=== PATIENT | female | born 1930 | race Caucasian/White ===

== ENCOUNTER → 2016-11-28 | Outpatient (CLI) | payer OTHER ==
[~2016-11-28] MED LIST: ACETAMINOPHEN325 M1 PO; ADULT LOW DOSE81 MG PO; AMBIEN 5 MG TABL5 M1 PO; APAP500 PO; ASA5UEC; ASPIR 8181 MG PO; ASPIRIN EC81 M1 PO; ASPIRIN325 PO; ATORVASTATIN CA40 MG PO; BACTRIM DS TAB1 EAC1 PO; BENICAR HCT 201 EACH PO; BENICAR20 MG PO; BENICAR40 MG PO; BETIMOL 0.0.25 %/11 OP; BISAC-EVAC10 MG RC; CALCIUM +D & M1 EACH PO; CALCIUM 500 +1 EAC5; CALCIUM 500 +1 EAC5 PO; CALCIUM 600 +1 EAC1 PO; CARVEDILOL12.5 MG PO; CARVEDILOL6.25 MG PO; CATAPRES0.1 MG PO; CELEBREX 200 M200 M1 PO; CELEBREX 200 M200 MG PO; CLONIDINE HCL0.1 MG PO; CLONIDINE PO; CLONIDINE0.1 PO; COLACE100 MG PO; COMPOUNDING; COUMADIN 3 MG TA3 MG PO; CYMBALTA20 MG PO; CYMBALTA30 MG PO; DEXTROAMPHETAMIN5 M2 PO; DILAUDID 2 MG TA2 MG PO; DILAUDID 4 MG TA4 M1 PO; DOLOPHINE HCL10 MG PO; EX-LAX15 M1 PO; EX-LAX5 MG PO; FENTANYL PA12 MCG/H1 TRANSDERM; FENTANYL PA25 MCG/HR TP; FENTANYL PA25 MCG/HR TRANSDERM; FENTANYL PA50 MCG/HR TRANSDERM; FIBERCON625 M1 PO; FOLIC ACID1 MG PO; FOSAMAX 35 MG35 MG PO; FOSAMAX 70 MG T70 MG PO; GABAPENTIN 100100 MG PO; HYDROCHLOROTHIA25 M1 PO; HYDROCODON-ACE1 EA11 PO; HYDROCODON-ACE1 EAC1 PO; HYDROCODON-ACE1 EAC7 PO; INDOMETHACIN 5050 M1 PO; LEVOTHYROXIN0.075 MG PO; LEVOTHYROXINE0.05 MG PO; LIDODERM 5%1 PATCH TOP; LIPITOR 20 MG T20 M1 PO; LISINOPRIL5 MG PO; MECLIZINE HCL12.5 MG PO; METHADONE HCL5 MG PO; MINIPRIN81 MG PO; MIRALAX17 GM PO; MIRALAX255 GM PO; MOBIC15 MG PO; MOBIC7.5 M1 PO; MOM PO; MULTIVITAMINS PO; NAPROSYN500 MG PO; NORCO 5-325 TA1 EACH PO; NORCO 7.5-3251 EACH PO; NORVASC 5 MG TAB5 MG PO; ONDANSETRON HCL4 M2 PO; OSCIMIN0.125 MG PO; OXYCODONE HCL 55 MG PO; OXYCODONE HCL10 MG PO; OXYCODONE HCL15 MG PO; OXYIR 5 MG CAPSU5 M1 PO; PAIN & FEVER325 MG PO; POTASSIUM20 PO; PROLIA60 MG/1 ML SQ; PURELAX17 GM PO; RECLAST 55 MG/1002; RECLAST 55 MG/1002 IVPB; ROXICODONE5 MG PO; SENNA CONCENTR8.6 MG PO; SENNA8.6 MG PO; SERTRALINE HCL50 MG PO; TERBINAFINE15 GM TP; TIMOLOL MA0.25 %/52 OP; TRAMADOL; TRAMADOL 50 MG50 MG; TRAMADOL 50 MG50 MG PO; TYLENOL325 MG PO; ULTRAM 50MG TAB50 MG PO; VITAMIN B-12500 MCG PO; VOLTAREN GEL 1100 G1 TOP; VOLTAREN GEL 1100 G2 TOP; XANAX 0.25 MG0.25 MG PO; XOPENEX0.63 MG/3 IH; ZANAFLEX4 MG PO; ZOFRAN4 MG PO; ZOLOFT 50 MG TA50 M1 PO; ZOLOFT100 MG PO
--- NOTE | ~2016-11-28 | HPC ---
[facility] [address] [address] PAIN MANAGEMENT CONSULTATION Name: KEILA GARCIAOGENE Room #: REG KALIEnrrique Valle.#: [id number] Admission: 11/28/16 Attend Phys: Giovanni Wong MD Discharge: Date of : 31 Report #: [id number] THIS REPORT FOR: //name// CC: Washington Urias DO Giovanni Wong DATE OF SERVICE: 11/28/2016 REASON FOR VISIT: Family palliative care consultation. HISTORY OF PRESENT ILLNESS: The patient is an 85-year-old who I have followed for many years for chronic pain. At the request of her daughter, Priya, she is here today with Priya, her son, [id number] and . They request that we discussed palliative care issues and end of life issues. 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 It does not invade beyond the nasopharynx as noted by PET scan and she has been offered radiation therapy. This has been technical services representative curative and will also shrink the mass as always there are side effects with radiation therapy and we discussed making sure that that treatment will be tolerated and that the side effects of treatment are not more burdensome than living with it. The patient is quite adamant and she wants to pursue this treatment, not so much for cosmetic reasons but because it is uncomfortable and bothers her. She has been treated in our clinic for severe osteoarthritis, particularly of the right shoulder. It is extremely painful for her and as her dominant arm, any movement has been causing excruciating pain. We tried a number of medications before finally settling on methadone 5 mg and she has been quite tolerant at that even at her age. She denies significant side effects and sees improvement in her ability to tolerate this severe somatic arthritic pain. She has also used oxycodone 5 mg 3 times daily for breakthrough pain and we have had quite of chore obtaining a Medicare approved compounding cream for her. We have ultimately been able to retrieve it from [facility] at reasonable cost. It contains ketamine, baclofen, cyclobenzaprine, ketoprofen, gabapentin and lidocaine and a transdermal cream . Today, she reports the pain is 7/10, not hurting too much, exacerbated again by any movement of the arm. There has been no other significant change in her history other than that already mentioned. PAST MEDICAL HISTORY: Well documented through her multiple visits including stroke, history of RI, AVM of the right shoulder, hypertension, gout and severe spinal degeneration with multiple kyphoplasties. She has suffered from depression. PHYSICAL EXAMINATION: [facility] [address] [place] [address] PAIN MANAGEMENT CONSULTATION Name: KEILA GARCIAOGENE Room #: REG [facility]#: [id number] Admission: 11/28/16 Attend Phys: Giovanni Wong MD Discharge: Date of : 31 Report #: [id number] GENERAL: She is alert, oriented, of sound mind. VITAL SIGNS: Blood pressure is 137/63, heart rate 63, respirations 16, O2 sat 95. BMI is 17. MUSCULOSKELETAL: Pain in the shoulders noted with all movement. IMPRESSION: 1. Chronic intractable pain, mostly severe osteoarthritis, right shoulder. 2. 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 3. Management of high risk medications under terms of an opioid agreement, which we have reviewed in all detail and including the CDC guidelines. 4. Palliative care requests. We had discussion today about palliative care directed for both the patient and her family. She reported that she has a durable power of commercial litigation attorney for health care established and Priya and she has completed an advanced directive with a DNR. She does not want to be resuscitated in an emergent situational and would prefer to allow for a natural as long as she was quite comfortable. Our conversation also centered around the quality of life. This is a nebulous term and is different from each person, what is meaningful to her and her is important as we will strive to provide that for them in ways that we can with her medications and other health care intervention. The timing of each person's is difficult to predict and most of the decisions that occur are point in time decision. Ability to understand what is a value will help when those decision points come. I provided the family with some guidance and also written information from the center for practical bioethics. They are carrying conversation's booklet, is an excellent source to begin a dialogue or continue dialogue on preferences at the end of life. She will be made clear here that though the patient and her are old and at the end of their life, they are not in anyway candidate for hospice and their life expectancy is unpredictable, but certainly not considered to be at anytime within the next 6 months. Family was allowed to ask and answer questions during her 30 minute consultation. Followup is planned as needed. I have provided also for the patient her medications under terms of our opioid agreement for 3 months. I will be available support to them in any way that I can going forward. By: [id number] Giovanni Wong MD /nt
[2016-11-28 14:00] VITALS: BP 137/63
== END | disposition home or self-care (01) ==
LOC: PAIN 07:19
DX: C30.0 Malignant neoplasm of nasal cavity (principal); G89.29 Other chronic pain; I21.3 ST elevation (STEMI) myocardial infarction of unspecified site; I10 Essential (primary) hypertension; M10.9 Gout, unspecified; F32.9 Major depressive disorder, single episode, unspecified; M19.011 Primary osteoarthritis, right shoulder; F11.20 Opioid dependence, uncomplicated; Z87.891 Personal history of nicotine dependence

== ENCOUNTER → 2017-03-06 | Outpatient (CLI) | payer OTHER ==
[~2017-03-06] VITALS: Ht 152.4 cm; Wt 42.4 kg
[~2017-03-06] MED LIST changes: +FLONASE 0.05%50 MCG NASAL
--- NOTE | ~2017-03-06 | HPC ---
[facility] [address] [address] PAIN MANAGEMENT CONSULTATION Name: KEILA GARCIA Room #: REG Enrrique Valle.#: [id number] Admission: 03/06/17 Attend Phys: Giovanni Wong MD Discharge: Date of : 31 Report #: [id number] THIS REPORT FOR: //name// CC: MAVERICK Wong DATE OF SERVICE: 03/06/2017 Followup visit for consultation regarding chronic pain. The patient was in the pain clinic today with her . They were here for about 25 minutes. We discussed her ongoing pain. Her shoulder is much better with the cream that we provided. This compound cream includes two muscle relaxants, baclofen and cyclobenzaprine in addition to gabapentin and ketoprofen. She has been using 3 times daily and her range of motion has been quite a bit improved. Pain score is 2/10. This is a marked reduction from her previous pain in the shoulder. She has been able to use her arm effectively for activities of daily living including eating, grooming and hygiene. She has also been using medication under terms of our agreement. She tolerated the medication very well and only side effect is constipation. She and her have developed a good regimen of taking Ex-Lax on the 3rd day along with MiraLax and this combination seems to allow her to have a predictable bowel movement the following day. She had a large exophytic lesion and mass that was extending from her right nare at last visit. She has had radiation treatments and I am pleased to report that this has almost completely gone. MEDICATIONS: From our clinic include methadone 5 mg 2 tablets morning, 2 evening and 1 at bedtime for a total of 25 mg daily. We have reduced this to 20 mg today at family request. She also uses oxycodone 5 mg and also I have decided to reduce her breakthrough medication to 2 tablets a day or 60 tablets. PHYSICAL EXAMINATION: She is pleasant, alert and oriented. She shows no signs of overmedication, depression or anxiety. Her blood pressure is 120/54, heart rate 59, BMI is 18.2. Although she is frail, she seems to be "doing quite well right now." Her right shoulder is minimally tender. She has good range of motion. Again, the exophytic lesion in her nose is now resolved. IMPRESSION AND PLAN: 1. Chronic intractable pain secondary primarily to severe osteoarthritis. Right shoulder has been worse and this is much improved with cream treatment. [facility] [address] [place] [address] PAIN MANAGEMENT CONSULTATION Name: KEILA GARCIA DEVORAH [id number] Admission: 03/06/17 Attend Phys: Giovanni Wong MD Discharge: Date of : 31 Report #: [id number] 2. Squamous cell carcinoma of the nasopharynx, extruding for the right nare has been resolved by radiation 3. Management of high risk medications under terms of our opioid agreement. She is on higher than the recommended CDC guidelines of 90 morphine milligram equivalents, but she is tolerating it extremely well, shows no significant side effects. Pain is well controlled and her medication is being managed carefully and cautiously. I believe it is appropriate to continue at this dose, although we will continue to reduce it as able. As noted, we have reduced her methadone by 20% and her oxycodone also by 30%. Prescriptions were renewed, methadone 5 mg #120, 2 tablets morning, 1 noon and 1 in evening; Oxycodone 5 mg 1 tablet b.i.d. for breakthrough. I also renewed Celebrex 200 mg once daily, Cymbalta 30 mg once daily. Followup visit is scheduled in 3 months. By: 1607 57 Giovanni Wong MD /nt
[2017-03-06 10:15] VITALS: BP 120/54
== END | disposition home or self-care (01) ==
LOC: PAIN 10-24 08:04
DX: M19.011 Primary osteoarthritis, right shoulder (principal); I63.9 Cerebral infarction, unspecified; Z85.818 Personal history of malignant neoplasm of other sites of lip, oral cavity, and pharynx; Z79.891 Long term (current) use of opiate analgesic; Z87.891 Personal history of nicotine dependence; Z88.0 Allergy status to penicillin; Z79.82 Long term (current) use of aspirin; Z79.899 Other long term (current) drug therapy

== ENCOUNTER 2017-08-18 14:50 | Emergency (ER) | payer OTHER ==
[~2017-08-18] VITALS: Ht 157.5 cm; Wt 45.4 kg
--- NOTE | ~2017-08-18 | EKG ---
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: YASIR : 1930 Requested By: Jerome Goncalves Order Number: [id number] MD: Toni Omalley Measurements Intervals Clemons Rate: 74 P: 40 GA: 166 QRS: -47 QRSD: 94 T: QT: 526 QTc: 584 Interpretive Statements Probable Atrial fibrillation Low voltage limb leads Prolonged QT interval Nonspecific ST and T wave abnormality Compared to ECG 08/08/2015 16:33:47 atrial fibrillation has replaced sinus rhythm Electronically Signed On 08-19-2017 7:53:01 RECYCLING OPERATOR by Toni Omalley [email or web address] <ELECTRONICALLY SIGNED> By: Toni Omalley MD, [facility] 08/19/17 0753 [id number] 1455 Toni Omalley MD, [facility] /EPI
[2017-08-18 15:20] LABS: ABSOLUTE NEUTROPHILS 8.6 thou/uL (1.4-8.2); BASOPHILS 0.2 % (0.0-2.0); EOSINOPHILS 0.7 % (0.0-3.0); HEMATOCRIT 42.6 % (37.0-47.0); HEMOGLOBIN 14.2 gm/dL (12.0-15.0); LYMPHOCYTES 5.1 % (24.0-44.0); MCH 33.3 pg (26.0-34.0); MCHC 33.5 g/dL (28.0-37.0); MCV 99.4 fL (80.0-100.0); MONOCYTES 2.9 % (1.0-8.0); PLATELET COUNT 165 thou/uL (150-400); POLYS 91.1 % (36.0-66.0); RBC 4.28 mil/uL (4.20-5.00); RDW 14.6 % (10.5-14.5); WBC 9.5 thou/uL (4.0-11.0)
[2017-08-18 15:28] LABS: ANION GAP 6 mmol/L (7-16); BUN 28 mg/dL (7-18); CALCIUM 8.7 mg/dL (8.5-10.1); CHLORIDE 105 mmol/L (98-107); CO2 30 mmol/L (21-32); CREATININE 0.9 mg/dL (0.6-1.0); GLUCOSE 100 mg/dL (74-106); POTASSIUM 4.2 mmol/L (3.5-5.1); SODIUM 141 mmol/L (136-145)
[2017-08-18 15:29] LABS: URINE BILIRUBIN NEGATIVE (Negative); URINE BLOOD NEGATIVE (Negative); URINE CLARITY CLEAR; URINE COLOR YELLOW; URINE GLUCOSE-RANDOM* NEGATIVE (Negative); URINE KETONES 1+ (Negative); URINE LEUKOCYTES-REFLEX NEGATIVE (Negative); URINE NITRITE-REFLEX NEGATIVE (Negative); URINE PROTEIN (DIPSTICK) NEGATIVE (Negative); URINE UROBILINOGEN 0.2 E.U./dl (0.2-1.0)
[2017-08-18 15:37] LABS: ALBUMIN 3.5 g/dL (3.4-5.0); DIRECT BILIRUBIN 0.2 mg/dL (<0.1-0.3); LIPASE 118 U/L (73-393); SGOT 23 U/L (15-37); SGPT 23 U/L (30-65); TOTAL BILIRUBIN 0.6 mg/dL (<0.1-1.0); TOTAL PROTEIN 7.2 g/dL (6.4-8.2); TROPONIN-I < 0.04 ng/mL (<0.06)
[2017-08-18] MEDS ORDERED: VITAMIN D31000 UNIT PO (16:07)
[2017-08-18] MEDS ORDERED: EX-LAX MAXIMUM25 MG PO (16:09)
[2017-08-18] MEDS ORDERED: CARRINGTON MOIS99 G2 TOP (16:10)
[2017-08-18] MEDS ORDERED: ZOFRAN ODT4 MG PO (16:18)
[2017-08-18 16:26] VITALS: BP 161/77
[2017-09-01] MEDS ORDERED: ROXICODONE5 MG PO (10:29)
[2017-09-01] MEDS ORDERED: CELEBREX 200 M200 M1 PO (10:29)
[2017-09-01] MEDS ORDERED: OXYCODONE HCL5 M1 PO (10:29)
[2017-09-01] MEDS ORDERED: METHADONE HCL5 MG PO (10:29)
[2017-09-01] MEDS ORDERED: CYMBALTA30 MG PO (10:29)
[2017-12-04] MEDS ORDERED: VITAMIN D3400 UNIT PO (11:08)
[2017-12-04] MEDS ORDERED: OXYCODONE HCL5 M1 PO (11:15)
[2017-12-04] MEDS ORDERED: METHADONE HCL5 MG PO (11:15)
[2017-12-04] MEDS ORDERED: CYMBALTA30 MG PO (11:15)
[2017-12-04] MEDS ORDERED: CELEBREX 200 M200 M1 PO (11:15)
[2017-12-04] MEDS ORDERED: ROXICODONE5 MG PO (11:15)
[2018-03-02] MEDS ORDERED: CALTRATE 600 +1 EAC1 PO (09:58)
[2018-03-02] MEDS ORDERED: ONDANSETRON HCL4 M2 PO (10:06)
[2018-03-02] MEDS ORDERED: METHADONE HCL5 MG PO (10:13)
[2018-03-02] MEDS ORDERED: CYMBALTA30 MG PO (10:13)
[2018-03-02] MEDS ORDERED: OXYCODONE HCL5 M1 PO (10:13)
[2018-03-02] MEDS ORDERED: CELEBREX 200 M200 M1 PO (10:13)
[2018-03-02] MEDS ORDERED: ROXICODONE5 MG PO (10:13)
== END 2017-08-18 17:25 | disposition home or self-care (01) ==
LOC: ER 14:50
PROVIDERS: Emergency Medicine
DX: R53.1 Weakness (principal); R11.0 Nausea; I10 Essential (primary) hypertension; E78.5 Hyperlipidemia, unspecified; M10.9 Gout, unspecified; I25.2 Old myocardial infarction; E03.9 Hypothyroidism, unspecified; F32.9 Major depressive disorder, single episode, unspecified; Z87.891 Personal history of nicotine dependence; Z88.1 Allergy status to other antibiotic agents

== ENCOUNTER → 2017-09-01 | Outpatient (CLI) | payer OTHER ==
[~2017-09-01] VITALS: Ht 157.5 cm; Wt 39.3 kg
[~2017-09-01] MED LIST changes: +CALTRATE 600 +1 EAC1 PO; +CARRINGTON MOIS99 G2 TOP; +EX-LAX MAXIMUM25 MG PO; +OXYCODONE HCL5 M1 PO; +VITAMIN D31000 UNIT PO; +VITAMIN D3400 UNIT PO; +ZOFRAN ODT4 MG PO
--- NOTE | ~2017-09-01 | HPC ---
[facility] [address] [place] [address] PAIN MANAGEMENT CONSULTATION Name: KEILA GARCIAOGENE Room #: REG [facility] Leonard.#: [id number] Admission: 09/01/17 Attend Phys: Giovanni Wong MD Discharge: Date of : 31 Report #: [id number] THIS REPORT FOR: //name// CC: Washington rUias DO Giovanni Wong DATE OF SERVICE: 09/01/2017 Followup visit for severe arthritis, right shoulder; intractable pain, management of high risk medication. The patient is here today in the pain clinic with her daughter Briana. I see her at 3-month intervals. She is under an opioid agreement with our clinic and we have discussed this at some length at each visit. We reviewed her medications again today in detail. She has done well with methadone, taking 5 mg 2 tablets morning and evening and a half tablet during the middle of the day. We had titrated that gradually up to 3 tablets a day for a total of 15 with OxyIR 5 mg for breakthrough pain. This is a good example of someone who is quite tolerant to the medication and has gotten good benefit. She is 86 years of age. She denies any significant side effects. She is bright and alert. She is able to watch an entire TV show and can read a magazine or part of the paper. She can carry on conversations without signs of cognitive overdose. She has been able to manage her constipation with the use of medication. Her family watches over her carefully and we try to carefully titrate medications to avoid any sort of oversedation. Briana is with her today and says that the current dosing may be best served in the facility by providing her with methadone 3 times daily, oxycodone on a schedule 5 mg and if she feels that she does not need it she will refuse it. We have calculated her morphine milligram equivalency. Add methadone with a conversion of 4:1 and oxycodone with a conversion of 1.5:1, her total morphine milligram equivalence is 82. This is under the CDC guideline of 90 morphine milligram equivalence and since it is being provided for her at the facility, I feel comfortable in providing it. Her primary pain is in her shoulder. She also has had a stroke on her left side, so the right side is important for getting up and down out of a chair and all other day-to-day activities. Medications have done a good job in reducing her pain intensity to a 2/10 today. She uses a wheelchair and would be considered a fall risk, but has not fallen in the last 2-3 months because of careful monitoring. She has always been frail, BMI today is 15.8 with no significant change. She has hypertension, which is under treatment. Her opioids are being provided under terms of an opioid agreement and a risk assessment tool shows that she is at low risk for [address] [address] PAIN MANAGEMENT CONSULTATION Name: KEILA GARCIA DEVORAH Room #: REG CLEnrrique Melendrez#: [id number] Admission: 09/01/17 Attend Phys: Giovanni Wong MD Discharge: Date of : 31 Report #: [id number] addiction. She does not smoke, nor abuse alcohol. PHYSICAL EXAMINATION: Pleasant, alert and oriented, without signs of overmedication. She is in a wheelchair. I did not ask her to try and move from her wheelchair or transfer. She has limited motion of her right shoulder with tenderness located there. She is frail. IMPRESSION: 1. Chronic osteoarthritic pain of the right shoulder. 2. Squamous cell carcinoma of the nasopharynx, which has resolved with radiation. 3. Management of high risk medications under terms of written opioid agreement. PLAN: I renewed her medications, methadone 5 mg 3 times a day, oxycodone 10 mg t.i.d. on schedule, which can then be refused by the patient, Celebrex 200 mg daily and Cymbalta 30 mg daily. All of this has been confirmed and agreed upon by family. We will see her back in the pain clinic in 3 months. <ELECTRONICALLY SIGNED> By: Giovanni Wong MD 09/03/17 1640 [id number] 1744 Giovanni Wong MD /nt
[2017-09-01 10:03] VITALS: BP 139/66
== END ==
LOC: PAIN 07:34
DX: M19.011 Primary osteoarthritis, right shoulder (principal); F11.90 Opioid use, unspecified, uncomplicated; Z85.828 Personal history of other malignant neoplasm of skin

== ENCOUNTER → 2017-12-04 | Outpatient (CLI) | payer OTHER ==
[~2017-12-04] VITALS: Ht 152.4 cm; Wt 41.5 kg
[~2017-12-04] MED LIST changes: -CALTRATE 600 +1 EAC1 PO
--- NOTE | ~2017-12-04 | HPC ---
[facility] [address] [address] PAIN MANAGEMENT CONSULTATION Name: KEILA GARCIA Room #: REG [facility]#: [id number] Admission: 12/04/17 Attend Phys: Giovanni Wong MD Discharge: Date of : 31 Report #: [id number] THIS REPORT FOR: //name// CC: Washington Urias DO Giovanni Wong DATE OF SERVICE: 12/04/2017 Followup visit for management of chronic osteoarthritic pain. The patient returns to pain clinic today with her daughter. She is in a wheelchair. She is here today for renewal of her medication. She is currently living at [facility]. All medications are provided by staff there. The patient is 86, continues to manage her medications carefully. She does have some incontinence of stool and constipation related to opioids as an issue, but she has got a regimen down that allows her to have a bowel movement every 3 days. We reviewed that today. Medication does provide relief of her pain. She is able to use her arms in a functional position, feeding, cleaning, brushing teeth is a bit difficult. She can provide most of her own hygiene. She needs some help with dressing. MEDICATIONS: Reviewed. She is on methadone 3 times daily and oxycodone 5 mg, also 3 times daily. She is now on a schedule for both medications. This has worked more effectively in her residence. We had a problem with that earlier in the year and she was not adequately treated. Her MME is 82. I will continue providing her medication for her under terms of this agreement. PQRS review shows that she is a fall risk and she is in a wheelchair. She does not use tobacco. She is hypertensive and under treatment. Her BMI is 15.8. This is consistent with her longstanding body habitus. She has no evidence of addiction or misuse of her medicine. She is grateful for the pain relief that she receives. Opioid contract and agreement have been reviewed as well as the CDC guidelines. PHYSICAL EXAMINATION: VITAL SIGNS: Blood pressure of 114/56, heart rate . BMI actually is up a little bit at 17.9. EXTREMITIES: She has pain with internal and external rotation of her arm. She has poor abduction. Campaign Management Specialist strength of the upper extremities is adequate. IMPRESSION: 1. Chronic osteoarthritis of the right shoulder. 2. Management of high risk medications under terms of written opioid agreement. [address] [address] PAIN MANAGEMENT CONSULTATION Name: KEILA GARCIA DEVORAH Room #: REG ANTONY Melendrez#: [id number] Admission: 12/04/17 Attend Phys: Giovanni Wong MD Discharge: Date of : 31 Report #: [id number] PLAN: I have renewed her methadone and oxycodone with 3 monthly release dates, and I will see her back in the pain clinic for evaluation sometime in February. By: 1717 2043 Giovanni Wong MD /nt
[2017-12-04 10:44] VITALS: BP 114/56
== END ==
LOC: PAIN 06:54
DX: M19.011 Primary osteoarthritis, right shoulder (principal); F11.90 Opioid use, unspecified, uncomplicated

== ENCOUNTER → 2018-03-02 | Outpatient (CLI) | payer OTHER ==
[~2018-03-02] VITALS: Ht 157.5 cm; Wt 41.4 kg
[~2018-03-02] MED LIST changes: +CALTRATE 600 +1 EAC1 PO
--- NOTE | ~2018-03-02 | HPC ---
[facility] [address] [address] PAIN MANAGEMENT CONSULTATION Name: KEILA GARCIA Room #: REG [facility].#: [id number] Admission: 03/02/18 Attend Phys: Giovanni Wong MD Discharge: Date of : 31 Report #: [id number] THIS REPORT FOR: //name// CC: Washington Urias DO Giovanni Wong DATE OF SERVICE: 03/02/2018 Followup visit for chronic osteoarthritis, right shoulder. The patient is here today with her daughter, Briana. She is doing okay with her current regimen of medications. She is on methadone 5 mg 3 times a day and oxycodone 5 mg 3 times a day. We have essentially resolved this to be given on schedule and she seems to do better in that fashion. Her MME is 67.5. I reviewed the CDC guidelines. I have read the importance of managing side effects. Currently, she denies any constipation or other problems. Cognitively, she is doing reasonably well for an 87-year-old and there are no signs of Alzheimer's or dementia. PHYSICAL EXAMINATION: She is pleasant and conversant. Height 5 feet 2 inches, weight 92 pounds with a BMI of 16.7, which is unchanged. Blood pressure 154/67, heart rate is 94. She is in a wheelchair. She has not fallen in the last 3 months, would not be considered a fall risk. Her pain intensity is 3/10 with medications. She does have severe osteoarthritis of the right shoulder. She is under treatment for hypertension. She has signed opioid agreement and is at low risk for addiction. Her functional assessment tool is 46/70. She denies tobacco or alcohol. IMPRESSION: 1. Chronic intractable osteoarthritic pain of the right shoulder. 2. Management of medications under terms of our opioid agreement. I renewed her medications with no changes. I have also continued co-analgesics Celebrex and Cymbalta and reviewed the side effects. Both the patient and daughter feel that they are valuable. Follow up visit in 3 months. By: 1221 1823 Giovanni Wong MD /nt
[2018-03-02 09:59] VITALS: BP 154/56
== END ==
LOC: PAIN 06:56
DX: M19.011 Primary osteoarthritis, right shoulder (principal); G89.4 Chronic pain syndrome; Z79.891 Long term (current) use of opiate analgesic

== ENCOUNTER → 2018-05-18 | Outpatient (CLI) | payer OTHER ==
[~2018-05-18] VITALS: Ht 157.5 cm; Wt 41.3 kg
--- NOTE | ~2018-05-18 | HPC ---
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 HISTORY OF PRESENT ILLNESS: The patient is here today with her daughter for a followup refill of her medications that she takes on a daily basis for her right shoulder pain. She tells me that her pain score today is 3-4, worse when she moves her arm, better when she is sleeping and her medications. 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 There is a Band-Aid over that presently. The patient tells me that she does not have any constipation. She uses MiraLax and Ex-Lax every 3 days and that is helpful in relieving any constipation issues. She does not have any daytime somnolence, but she does take daily scheduled naps. ALLERGIES: PEANUTS and TETRACYCLINE. CURRENT MEDICATIONS: Oxycodone 5 mg tablets 3 times a day scheduled, methadone 5 mg 3 times a day, Cymbalta 30 mg once daily, Celebrex 200 mg once daily, Zofran as needed, Caltrate with vitamin D daily, Ex-Lax every third day, vitamin D3 daily, Lipitor 40 mg at bedtime, aspirin 81 mg daily, compounding gel 3 times a day, MiraLax every third day, lisinopril 5 mg daily, Synthroid 50 mcg daily, Coreg 12.5 mg twice a day, Colace as needed. PQRS: 1. The patient has a history of osteoarthritis in her shoulders. Denies rheumatoid arthritis. 2. Height is 5 feet 2 inches, weight is 91. BMI is 16.6. 3. Blood pressure is 180/79, pulse is 56, respirations 16, oxygen sat is 96. 4. Pain score is 3/4. 5. Denies dizziness. Does need some help walking and standing, has not fallen in the last 3 months. 6. Denies blood thinners, does have a history of hypertension. 7. Opioid therapy greater than 6 weeks and opioid signed contract on the chart. Risk assessment tool is low and her functional assessment is 46/70. 8. Recreational drug use, she denies. She is a former smoker and occasionally drinks alcohol on special occasions. [place] drug monitoring systems were checked. The patient has been [address] [address] PAIN MANAGEMENT CONSULTATION Name: KEILA GARCIA [id number] Admission: 05/18/18 Attend Phys: Marlen Bocanegra Discharge: Date of : 31 Report #: [id number] filling at appropriate times from only Dr. Giovanni Wong. PHYSICAL EXAMINATION: This is a pleasant 87-year-old female who appears her stated age. Blood pressure is slightly elevated today at 180/79 and tell me they have not taken blood pressure medicines today. Her BMI is 16.6, though this is unchanged from previous visits. She is in a wheelchair. She has not fallen in the last 3 months. She has pain with internal and external rotation of her right arm. 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 Strength in her upper extremities equal bilaterally and is adequate. Does have a dressing over a left upper arm squamous cell tumor. This has not been removed by me today, scheduled for removal next week. ASSESSMENT: 1. Chronic osteoarthritis pain of her right shoulder. 2. 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 3. Management of high risk medications under terms of our opioid agreement. We reviewed the fact that opiate medications are being used to provide analgesia adequate to support activities of daily living, not attempting to achieve a specific pain score on the 0-10 Visual Analog Scale. The current opiate medications are providing sufficient analgesia to allow the patient to participate in activities of daily living. The patient is not exhibiting any aberrant behavior suggestive of drug diversion. The patient is not having any adverse reactions to medications. The patient is not suffering from daytime somnolence or mental acuity changes. The patient is managing opiate-induced constipation with appropriate vpbb-qmg-favxpec agents and dietary considerations. The patient was counseled on concern for caution with operating a motor vehicle while using opiate medications. A physical exam was performed and the patient's functional status was evaluated. All patients with back pain were advised against the bed rest greater than 4 days and were advised to return to normal activities. Pain score assessment was noted and the treatment plan was reviewed with the patient. All current medications, both prescribed and OTC were reviewed and reconciled on the electronic medical record. Tobacco screening was accomplished and smoking cessation was advised when indicated. BMI was noted and diet/exercise modification was recommended for all patients following outside normal parameters. I reviewed with the patient today their responsibilities to safeguard prescription medications, reviewed their responsibility to utilize medications only as prescribed by the physician. They are to seek and receive pain medications only from 1 physician group ( [facility]). They are to use 1 pharmacy and keep the clinic informed if they change pharmacies. Their responsibilities include making followup visits in a timely fashion and to avoid abrupt discontinuation of medication usage. Their responsibilities further [facility] [address] [place] [address] PAIN MANAGEMENT CONSULTATION Name: KEILA GARCIAOGENE Room #: [facility]#: [id number] Admission: 05/18/18 Attend Phys: Marlen Bocanegra Discharge: Date of : 31 Report #: [id number] include bringing their medications (bottles from the pharmacy with residual pills) to the visit for possible confirmation of pill counts and the patient understands it is their responsibility to submit to random drug screens to ensure both that the medications prescribed are present, and that no other controlled substances are present. All prescriptions provided today were generated electronically. PLAN: I have renewed the patient's medications today. 1. Methadone 5 mg 3 times a day, #90 for today, 4-week and 8-week. 2. Renewed his oxycodone 5 mg 1 tablet 3 times a day, #90 for refill today, 4-week and 8-week. 3. Celebrex 200 mg 1 p.o. daily, #90, which is a 3-month supply. 4. Cymbalta 30 mg 1 p.o. every day, #90, a 3-month supply. 5. Call when needed for her compound cream to check pharmacy. Family member is uncertain if it was needed a refill at this time, but will call when needed. 6. Reviewed side effects with the patient and family. Regarding constipation and daytime sleepiness, the patient tells me both of them are under control. The patient and family both agreeable with plan of care for renewal of medications and will be seen in 3-month time frame if not needed to before. The patient is seen in collaboration today with Dr. Giovanni Wong. <ELECTRONICALLY SIGNED> By: Marlen Bocanegra 05/19/18 0714 1136 2200 Marlen Bocanegra /nt
[2018-05-18 10:52] VITALS: BP 180/79
== END ==
LOC: PAIN 07:11
DX: M19.011 Primary osteoarthritis, right shoulder (principal); G89.29 Other chronic pain; C11.9 Malignant neoplasm of nasopharynx, unspecified; C76.42 Malignant neoplasm of left upper limb; Z79.891 Long term (current) use of opiate analgesic; Z79.899 Other long term (current) drug therapy

== ENCOUNTER 2018-06-05 18:18 | Emergency (ER) | payer OTHER ==
[~2018-06-05] VITALS: Ht 157.5 cm; Wt 52.2 kg
--- NOTE | ~2018-06-05 | EKG ---
[place] [address] [place] [address] ELECTROCARDIOGRAM REPORT Name: KEILA GARCIA Room #: 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1930 Requested By: Bon Guy Order Number: [id number] MD: Juan Francisco Pal Measurements Intervals [place] Rate: 87 P: -65 [place]: 143 QRS: -39 QRSD: 92 T: 9 QT: 376 QTc: 453 Interpretive Statements Sinus rhythm Left axis deviation Low voltage, extremity leads Nonspecific ST segment abnormalities Compared to ECG 08/18/2017 14:55:17 No significant change Electronically Signed On 06-06-2018 9:37:41 [employer] by Juan Francisco Pal [email or web address] <ELECTRONICALLY SIGNED> By: Juan Francisco Pal MD 06/06/18 0937 1841 1841 Juan Francisco Pal MD /AARON
[2018-06-05 19:14] LABS: ABSOLUTE NEUTROPHILS 7.9 thou/uL (1.4-8.2); BASOPHILS 0.4 % (0.0-2.0); EOSINOPHILS 0.2 % (0.0-3.0); HEMATOCRIT 38.7 % (37.0-47.0); HEMOGLOBIN 13.2 gm/dL (12.0-15.0); LYMPHOCYTES 6.5 % (24.0-44.0); MCH 33.7 pg (26.0-34.0); MCHC 34.1 g/dL (28.0-37.0); MCV 98.8 fL (80.0-100.0); MONOCYTES 9.3 % (1.0-8.0); PLATELET COUNT 125 thou/uL (150-400); POLYS 83.6 % (36.0-66.0); RBC 3.92 mil/uL (4.20-5.00); RDW 13.8 % (10.5-14.5); WBC 9.5 thou/uL (4.0-11.0)
[2018-06-05 19:24] LABS: ANION GAP 9 mmol/L (7-16); BUN 25 mg/dL (7-18); CHLORIDE 104 mmol/L (98-107); CO2 25 mmol/L (21-32); CREATININE 0.9 mg/dL (0.6-1.0); GLUCOSE 110 mg/dL (74-106); POTASSIUM 3.8 mmol/L (3.5-5.1); SODIUM 138 mmol/L (136-145)
[2018-06-05 19:27] LABS: URINE BILIRUBIN NEGATIVE (Negative); URINE BLOOD 1+ (Negative); URINE COLOR YELLOW; URINE GLUCOSE-RANDOM* NEGATIVE (Negative); URINE KETONES 1+ (Negative); URINE PROTEIN (DIPSTICK) NEGATIVE (Negative); URINE UROBILINOGEN 0.2 E.U./dl (0.2-1.0)
[2018-06-05 19:32] LABS: URINE LEUKOCYTES-REFLEX 1+ (Negative); URINE NITRITE-REFLEX POSITIVE (Negative)
[2018-06-05 19:33] LABS: URINE CLARITY HAZY
[2018-06-05 19:35] LABS: ALBUMIN 3.4 g/dL (3.4-5.0); MAGNESIUM 1.6 mg/dL (1.8-2.4); SGOT 24 U/L (15-37); SGPT 21 U/L (30-65); TOTAL BILIRUBIN 0.6 mg/dL (<0.1-1.0); TOTAL PROTEIN 7.3 g/dL (6.4-8.2); TROPONIN-I <0.06 ng/mL (<0.06)
[2018-06-05 19:35] LABS: BACTERIA-REFLEX >30 Many /HPF (None Seen); CASTS None Seen /LPF (None Seen); CRYSTALS None Seen /LPF (None Seen); SQUAMOUS 0-3 Few /LPF (0-3); URINE RBC 3-10 Few /HPF (0-2); URINE WBC-REFLEX 6-15 Few /HPF (0-5)
[2018-06-05] MEDS ORDERED: KEFLEX500 M1 PO (21:12)
[2018-06-05 21:37] VITALS: BP 119/54
[2018-06-06] MEDS ORDERED: EX-LAX MAXIMUM25 MG PO (22:20)
[2018-06-06] MEDS ORDERED: OXYCODONE HCL 55 MG PO (22:22)
== END 2018-06-05 21:43 | disposition home or self-care (01) ==
LOC: ER 18:18
PROVIDERS: Emergency Medicine
DX: N39.0 Urinary tract infection, site not specified (principal); E86.0 Dehydration; R53.1 Weakness; I10 Essential (primary) hypertension; E78.5 Hyperlipidemia, unspecified; M10.9 Gout, unspecified; E03.9 Hypothyroidism, unspecified; F32.9 Major depressive disorder, single episode, unspecified; Z87.891 Personal history of nicotine dependence; Z88.8 Allergy status to other drugs, medicaments and biological substances; Z91.010 Allergy to peanuts; Z86.73 Personal history of transient ischemic attack (TIA), and cerebral infarction without residual deficits; Z85.828 Personal history of other malignant neoplasm of skin

== ENCOUNTER 2018-06-06 18:45 | Inpatient (IN) | payer OTHER ==
[~2018-06-06] VITALS: Ht 157.5 cm; Wt 44.5 kg
--- NOTE | ~2018-06-06 | EKG ---
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 : 1930 Requested By: Bon Guy Order Number: [id number] MD: Juan Francisco Pal Measurements Intervals [place] Rate: 83 P: [place]: QRS: -10 QRSD: 105 T: 53 QT: 410 QTc: 482 Interpretive Statements Sinus rhythm Borderline low voltage, extremity leads Nonspecific ST segment abnormalities Compared to ECG 06/05/2018 18:41:37 Left-axis deviation no longer present Electronically Signed On 06-07-2018 10:29:16 [employer] by Juan Francisco Pal [email or web address] <ELECTRONICALLY SIGNED> By: Juan Francisco Pal MD 06/07/18 1029 00 00 Juan Francisco Pal MD /AARON
[~2018-06-06 18:45] MED LIST changes: +KEFLEX500 M1 PO
[2018-06-06 18:46] VITALS: BP 163/68
[2018-06-06 19:38] LABS: BE(vivo) -1.6 mmol/L (-2 to +3); HCO3 23.4 mmol/L (22.0-26.0); PCO2 VENOUS 40.3 mmHg (41.0-51.0); PO2 VENOUS 35.1 mmHg (35.0-45.0)
[2018-06-06 19:49] LABS: ABSOLUTE NEUTROPHILS 6.5 thou/uL (1.4-8.2); BASOPHILS 0.2 % (0.0-2.0); EOSINOPHILS 0.4 % (0.0-3.0); HEMATOCRIT 37.4 % (37.0-47.0); HEMOGLOBIN 12.8 gm/dL (12.0-15.0); LYMPHOCYTES 3.8 % (24.0-44.0); MCH 33.9 pg (26.0-34.0); MCHC 34.3 g/dL (28.0-37.0); MCV 98.8 fL (80.0-100.0); MONOCYTES 5.7 % (1.0-8.0); PLATELET COUNT 119 thou/uL (150-400); POLYS 89.9 % (36.0-66.0); RBC 3.79 mil/uL (4.20-5.00); RDW 14.1 % (10.5-14.5); WBC 7.2 thou/uL (4.0-11.0)
[2018-06-06 19:57] LABS: ANION GAP 5 mmol/L (7-16); BUN 23 mg/dL (7-18); CALCIUM 8.6 mg/dL (8.5-10.1); CHLORIDE 103 mmol/L (98-107); CO2 27 mmol/L (21-32); CREATININE 0.9 mg/dL (0.6-1.0); GLUCOSE 129 mg/dL (74-106); POTASSIUM 3.8 mmol/L (3.5-5.1); SODIUM 135 mmol/L (136-145)
[2018-06-06 20:07] LABS: ALBUMIN 3.1 g/dL (3.4-5.0); SGOT 32 U/L (15-37); SGPT 27 U/L (30-65); TOTAL BILIRUBIN 0.6 mg/dL (<0.1-1.0); TOTAL PROTEIN 6.9 g/dL (6.4-8.2); TROPONIN-I <0.06 ng/mL (<0.06)
[2018-06-06 22:06] VITALS: BP 91/49
[2018-06-06] MEDS ORDERED: EX-LAX MAXIMUM25 MG PO (22:20)
[2018-06-06] MEDS ORDERED: OXYCODONE HCL 55 MG PO (22:22)
[2018-06-06 23:03] VITALS: BP 103/50
[2018-06-07 04:15] VITALS: BP 128/62
[2018-06-07 08:00] VITALS: BP 150/54
[2018-06-07 16:00] VITALS: BP 117/58
[2018-06-07 19:55] VITALS: BP 142/55
[2018-06-08 03:44] VITALS: BP 151/69
[2018-06-08 08:30] VITALS: BP 179/74
[2018-06-08 14:52] VITALS: BP 146/45
[2018-06-08 19:21] VITALS: BP 156/63
[2018-06-09 04:30] VITALS: BP 152/68
[2018-06-09 04:36] VITALS: BP 189/91
[2018-06-09 06:17] LABS: HEMATOCRIT 31.8 % (37.0-47.0); HEMOGLOBIN 10.9 gm/dL (12.0-15.0); MCHC 34.3 g/dL (28.0-37.0); RBC 3.21 mil/uL (4.20-5.00); RDW 13.9 % (10.5-14.5); WBC 5.2 thou/uL (4.0-11.0)
[2018-06-09 06:30] LABS: CALCIUM 7.5 mg/dL (8.5-10.1); CREATININE 0.6 mg/dL (0.6-1.0); MAGNESIUM 1.6 mg/dL (1.8-2.4)
[2018-06-09 08:23] VITALS: BP 182/61
[2018-06-09 10:32] VITALS: BP 182/61
[2018-06-09 12:59] VITALS: BP 147/67
[2018-06-09 23:04] VITALS: BP 137/59
[2018-06-10 07:25] VITALS: BP 187/93
[2018-06-10 07:41] LABS: HEMATOCRIT 35.4 % (37.0-47.0); HEMOGLOBIN 11.9 gm/dL (12.0-15.0); MCHC 33.7 g/dL (28.0-37.0); MCV 97.9 fL (80.0-100.0); RBC 3.61 mil/uL (4.20-5.00); RDW 13.5 % (10.5-14.5); WBC 5.2 thou/uL (4.0-11.0)
[2018-06-10 07:51] LABS: CALCIUM 7.8 mg/dL (8.5-10.1); CREATININE 0.6 mg/dL (0.6-1.0); MAGNESIUM 1.6 mg/dL (1.8-2.4)
[2018-06-10 07:57] LABS: POTASSIUM 2.9 mmol/L (3.5-5.1)
[2018-06-10 11:42] VITALS: BP 165/77
[2018-06-10 20:06] VITALS: BP 157/77
[2018-06-11 07:25] VITALS: BP 171/77
[2018-06-11 09:18] LABS: BASOPHILS 0.9 % (0.0-2.0); EOSINOPHILS 1.3 % (0.0-3.0); HEMATOCRIT 34.3 % (37.0-47.0); HEMOGLOBIN 11.7 gm/dL (12.0-15.0); LYMPHOCYTES 13.5 % (24.0-44.0); MCH 33.4 pg (26.0-34.0); MCHC 34.1 g/dL (28.0-37.0); MCV 97.9 fL (80.0-100.0); MONOCYTES 11.2 % (1.0-8.0); PLATELET COUNT 168 thou/uL (150-400); POLYS 73.1 % (36.0-66.0); RBC 3.51 mil/uL (4.20-5.00); RDW 13.9 % (10.5-14.5); WBC 5.5 thou/uL (4.0-11.0)
[2018-06-11 09:25] LABS: CALCIUM 7.8 mg/dL (8.5-10.1); CREATININE 0.8 mg/dL (0.6-1.0); POTASSIUM 3.1 mmol/L (3.5-5.1)
[2018-06-11 14:30] VITALS: BP 130/68
[2018-06-11 20:17] VITALS: BP 136/67
[2018-06-12 03:38] VITALS: BP 157/72
[2018-06-12 07:20] LABS: HEMATOCRIT 32.1 % (37.0-47.0); HEMOGLOBIN 11.2 gm/dL (12.0-15.0); MCH 34.1 pg (26.0-34.0); MCV 97.5 fL (80.0-100.0); RBC 3.29 mil/uL (4.20-5.00); RDW 13.6 % (10.5-14.5); WBC 4.7 thou/uL (4.0-11.0)
[2018-06-12 07:34] LABS: CALCIUM 7.4 mg/dL (8.5-10.1); CREATININE 0.8 mg/dL (0.6-1.0); POTASSIUM 3.1 mmol/L (3.5-5.1)
[2018-06-12 08:03] VITALS: BP 180/83
[2018-06-12 16:02] VITALS: BP 136/71
[2018-06-12 16:35] VITALS: BP 142/61
[2018-06-12 19:29] VITALS: BP 126/64
[2018-06-13 03:51] VITALS: BP 169/71
[2018-06-13 05:43] LABS: HEMATOCRIT 31.8 % (37.0-47.0); HEMOGLOBIN 10.6 gm/dL (12.0-15.0); MCH 32.8 pg (26.0-34.0); MCHC 33.4 g/dL (28.0-37.0); MCV 98.3 fL (80.0-100.0); RBC 3.23 mil/uL (4.20-5.00); RDW 13.5 % (10.5-14.5); WBC 4.8 thou/uL (4.0-11.0)
[2018-06-13 06:04] LABS: CALCIUM 7.6 mg/dL (8.5-10.1); CREATININE 0.8 mg/dL (0.6-1.0)
[2018-06-13 16:04] VITALS: BP 127/72
[2018-06-13 20:01] VITALS: BP 120/63
[2018-06-14 03:57] VITALS: BP 162/59
[2018-06-14 05:49] LABS: HEMATOCRIT 34.3 % (37.0-47.0); HEMOGLOBIN 11.2 gm/dL (12.0-15.0); MCH 32.2 pg (26.0-34.0); MCHC 32.8 g/dL (28.0-37.0); MCV 98.2 fL (80.0-100.0); RBC 3.49 mil/uL (4.20-5.00); RDW 13.6 % (10.5-14.5); WBC 5.3 thou/uL (4.0-11.0)
[2018-06-14 06:04] LABS: CALCIUM 8.6 mg/dL (8.5-10.1); CREATININE 0.8 mg/dL (0.6-1.0); POTASSIUM 3.6 mmol/L (3.5-5.1)
[2018-06-14 08:12] VITALS: BP 176/73
[2018-06-14 17:47] VITALS: BP 120/54
[2018-06-14 19:22] VITALS: BP 86/43
[2018-06-15 06:19] LABS: MCH 33.2 pg (26.0-34.0); MCHC 34.2 g/dL (28.0-37.0); MCV 97.1 fL (80.0-100.0); RBC 3.61 mil/uL (4.20-5.00); RDW 14.1 % (10.5-14.5)
[2018-06-15 06:30] LABS: POTASSIUM 3.6 mmol/L (3.5-5.1)
[2018-06-15 08:18] VITALS: BP 157/76
[2018-06-15 09:23] VITALS: BP 157/76
[2018-06-15] MEDS ORDERED: IPRAT-ALBUT 0.5-3 ML INH (12:28)
[2018-06-15] MEDS ORDERED: CARVEDILOL25 MG PO (12:29)
[2018-06-15] MEDS ORDERED: LISINOPRIL20 MG PO (12:30)
[2018-06-15] MEDS ORDERED: MUCINEX600 MG PO (12:35)
[2018-06-15] MEDS ORDERED: AUGMENTIN 875-1 EACH PO (12:38)
== END 2018-06-15 14:12 | disposition hospice, home (50) | DRG 871 ==
LOC: ER 18:45 → 4W 21:15 → EROBS 21:15 → 4W 22:33 → SICU 06-09 13:54 → 4W 06-12 15:59
PROVIDERS: Emergency Medicine; Hospitalist; Internal Medicine
DX: A41.9 Sepsis, unspecified organism (principal); J18.9 Pneumonia, unspecified organism; J96.01 Acute respiratory failure with hypoxia; N39.0 Urinary tract infection, site not specified; I69.354 Hemiplegia and hemiparesis following cerebral infarction affecting left non-dominant side; F11.20 Opioid dependence, uncomplicated; I10 Essential (primary) hypertension; M62.84 Sarcopenia; K59.00 Constipation, unspecified; M19.90 Unspecified osteoarthritis, unspecified site; E83.42 Hypomagnesemia; E87.6 Hypokalemia; B96.20 Unspecified Escherichia coli [E. coli] as the cause of diseases classified elsewhere; E78.5 Hyperlipidemia, unspecified; G89.29 Other chronic pain; M54.9 Dorsalgia, unspecified; M10.9 Gout, unspecified; E03.9 Hypothyroidism, unspecified; F32.9 Major depressive disorder, single episode, unspecified; Z87.891 Personal history of nicotine dependence; Z87.81 Personal history of (healed) traumatic fracture; I25.2 Old myocardial infarction; Z85.828 Personal history of other malignant neoplasm of skin; Z79.82 Long term (current) use of aspirin; Z79.899 Other long term (current) drug therapy; Z88.1 Allergy status to other antibiotic agents; Z91.010 Allergy to peanuts
CPT/HCPCS: 10045; 10047; 15002